=== PATIENT | male | born 1985 | race American Indian/Alaskan Native ===

== ENCOUNTER 2018-06-17 07:08 | Emergency (ER) | payer SELFPAY ==
[2018-06-17] MEDS ORDERED: TORADOL IM ONE (08:57)
--- NOTE | 2018-06-17 09:03 | Emergency Department Report ---
ED Back Pain/Injury HPI - General Chief Complaint: Back Pain/Injury Stated Complaint: BACK PAIN Time Seen by Provider: 06/17/18 08:52 Source: patient Limitations: No Limitations - History of Present Illness Initial Comments: Mr. Love is a healthy 32 yo male who presents with left lower back pain, mild achy stiff. He has hx of "bad feet". Mild pain at the bottom of both feets. No leg pain otherwise. No paresthesias. 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 MD Complaint: back pain -: Gradual, unknown (Sunday morning) Similar Symptoms Previously: No Place: work Radiation: none Severity: mild Quality: dull Consistency: constant Improves With: movement - Related Data Previous Rx's Medication Instructions Recorded Last Taken Type Cyclobenzaprine [Flexeril] 10 mg PO TID PRN #20 tablet 06/17/18 Unknown Rx Ibuprofen 400 mg PO QID 5 Days #20 tablet 06/17/18 Unknown Rx Allergies Allergy/AdvReac Type Severity Reaction Status Date / Time No Known Allergies Allergy Unverified 06/17/18 07:51 ED Review of Systems ROS: Stated complaint: BACK PAIN Other details as noted in HPI Constitutional: denies: fever, malaise Cardiovascular: denies: chest pain Gastrointestinal: denies: abdominal pain Musculoskeletal: back pain. denies: joint swelling, arthralgia Skin: denies: rash, lesions ED Past Medical Hx - Past Medical History Previous Medical History?: No - Surgical History Past Surgical History?: No - Social History Smoking Status: Current Some Day Smoker Substance Use Type: None - Medications Home Medications: Home Medications Medication Instructions Recorded Confirmed Last Taken Type Cyclobenzaprine [Flexeril] 10 mg PO TID PRN #20 tablet 06/17/18 Unknown Rx Ibuprofen 400 mg PO QID 5 Days #20 tablet 06/17/18 Unknown Rx ED Physical Exam - General Limitations: No Limitations General appearance: alert, in no apparent distress, other (patient appears well , appears comfortable) - Head Head exam: Present: atraumatic, normocephalic - Eye Eye exam: Present: normal appearance - ENT ENT exam: Present: mucous membranes moist - Neck Neck exam: Present: normal inspection - Respiratory Respiratory exam: Present: normal lung sounds bilaterally. Absent: respiratory distress, wheezes, rales, rhonchi - Cardiovascular Cardiovascular Exam: Present: regular rate, normal rhythm, normal heart sounds. Absent: systolic murmur, diastolic murmur, rubs, gallop - GI/Abdominal GI/Abdominal exam: Present: soft, normal bowel sounds. Absent: distended, tenderness, guarding, rebound - Rectal Rectal exam: Present: deferred - Extremities Exam Extremities exam: Present: normal inspection - Back Exam Back exam: Present: normal inspection, full ROM. Absent: tenderness, CVA tenderness (R), CVA tenderness (L), muscle spasm, paraspinal tenderness, vertebral tenderness - Neurological Exam Neurological exam: Present: alert, oriented X3 - Psychiatric Psychiatric exam: Present: normal affect, normal mood - Skin Skin exam: Present: warm, dry, intact, normal color. Absent: rash ED Course Vital Signs 06/17/18 07:51 Temperature 98.6 F Pulse Rate 69 Respiratory 16 Rate Blood Pressure 112/79 O2 Sat by Pulse 100 Oximetry ED Medical Decision Making - Medical Decision Making Tim is a pleasant 32-year-old male presents with left back strain and bilateral foot pain due to overuse injury at work. 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 I recommended anti-inflammatories and muscle relaxer. He was given IM Toradol in the ED. Prescribed ibuprofen and Flexeril. With history of "bad feet, suspect patient has plantar fasciitis". He was given written instructions. Critical care attestation.: If time is entered above; I have spent that time in minutes in the direct care of this critically ill patient, excluding procedure time. ED Disposition Clinical Impression: Low back strain, Bilateral foot pain Disposition: - TO HOME OR SELFCARE Is pt being admited?: No Does the pt Need Aspirin: No Condition: Stable Instructions: Low Back Strain (ED), Plantar Fasciitis (ED) Prescriptions: Cyclobenzaprine [Flexeril] 10 mg PO TID PRN #20 tablet PRN Reason: Muscle Spasm Ibuprofen 400 mg PO QID 5 Days #20 tablet Referrals: [facility] [Outside] - 3-5 Days
[2018-06-17 09:17] VITALS: BP 127/83
== END 2018-06-17 09:17 | disposition home or self-care (01) ==
LOC: EDBD → ED 07:08
DX: S39.012A Strain of muscle, fascia and tendon of lower back, initial encounter (principal); M79.672 Pain in left foot; M79.671 Pain in right foot; F17.200 Nicotine dependence, unspecified, uncomplicated; W24.0XXA Contact with lifting devices, not elsewhere classified, initial encounter; Y93.89 Activity, other specified; Y92.69 Other specified industrial and construction area as the place of occurrence of the external cause; Y99.8 Other external cause status
CPT/HCPCS: 96372; 99282; J1885

== ENCOUNTER 2018-10-20 21:40 | Emergency (ER) | payer BC ==
--- NOTE | 2018-10-20 21:52 | Emergency Department Report ---
Blank Doc - Documentation Documentation: This is a 33-year-old male that c/o of left arm redness and pain. stated burned himself while cooking a few weeks ago and pain with redness started yesterday. This initial assessment diagnostic orders/clinical plan/treatment(s) is/are subject to change based on patient's health status, clinical progression and re- assessment by fellow clinical providers in the ED. Further treatment and workup at subsequent clinical providers discretion. Patient/guardians urged not to e zaina from ED s their condition may be serious if not clinically assessed and managed. Initial orders include: 1-Patient sent to [facility] for further evaluation and treatment
[2018-10-20 21:54] VITALS: BP 144/74
--- NOTE | 2018-10-21 00:46 | Emergency Department Report ---
ED Rash HPI - HPI Chief Complaint: Skin Rash Stated Complaint: BURN RASH ON LEFT ARM Time Seen by Provider: 10/20/18 21:51 Duration: Today Location: Upper Extremities (forearm left) Rash Symptoms: Yes Itching, No Facial Swelling, No Tongue/Oral Swelling, No Breathing Difficulties, No Choking Sensation, No Wheezing/Dyspnea, No Peeling, No Blistering, No Fever, No Lightheaded, No Malaise, No Myalgias Severity: mild Other History: 33-year-old -[place] male reports to the emergency room for left forearm bumps around a burn that he inquired on 10/02/2018. Patient reports that the rash itches and has blisterlike pimples. Patient reports he was using triple antibiotic ointment on his burn but only did that for 1 day. ED Review of Systems ROS: Stated complaint: BURN RASH ON LEFT ARM Other details as noted in HPI Comment: All other systems reviewed and negative Skin: rash ED Past Medical Hx - Past Medical History Previous Medical History?: No - Surgical History Past Surgical History?: No - Social History Smoking Status: Never Smoker Substance Use Type: None - Medications Home Medications: Home Medications Medication Instructions Recorded Confirmed Last Taken Type Cyclobenzaprine [Flexeril] 10 mg PO TID PRN #20 tablet 06/17/18 Unknown Rx Ibuprofen 400 mg PO QID 5 Days #20 tablet 06/17/18 Unknown Rx Triamcinolone Acetonide 15 gm TP BID PRN #1 cream..g. 10/21/18 Unknown Rx Rash Exam - Exam General: Vital signs noted. No distress. Alert and acting appropriately. HEENT: No Periorbital Edema, No Conjuctival Injection, No Chemosis, No Perioral Edema, No Tongue Edema, No Uvular Edema, No Compromised Airway, No Drooling Lungs: Yes Good Air Exchange (Normal Breath Sounds), No Wheezes, No Ronchi, No Stridor, No Cough, No Labored Respirations, No Retractions, No Use of Accessory Muscles, No Other Abnormal Lung Sounds Heart: Yes Regular, No Murmur Skin: Yes Other (pimple-like lesions that have clear fluid nontender to palpate), No Urticarial Rash, No Morbilliform rash, No Excoriations, No Weeping, No Tenderness, No Erythema, No Edema, No Encrustations ED Course Vital Signs 10/20/18 21:52 Temperature 98 F Pulse Rate 80 Respiratory 16 Rate Blood Pressure 144/74 O2 Sat by Pulse 99 Oximetry ED Medical Decision Making - Medical Decision Making Patient has been evaluated by this provider fast track. Sample of fluid from blisterlike pimple sent to lab for culture We'll try triamcinolone ointment to rash to see if that improves. We'll also refer patient to dermatology if the rash does not improve he should follow up with them. Critical care attestation.: If time is entered above; I have spent that time in minutes in the direct care of this critically ill patient, excluding procedure time. ED Disposition Clinical Impression: Rash and nonspecific skin eruption Disposition: - TO HOME OR SELFCARE Is pt being admited?: No Does the pt Need Aspirin: No Condition: Stable Instructions: Acute Rash (ED) Additional Instructions: Please use cream on the rash if no improvement in 3 days please follow up with a business services vice president I have listed one below for your convenience. Prescriptions: Triamcinolone Acetonide 15 gm TP BID PRN #1 cream..g. PRN Reason: Rash Referrals: ESHA NICHOLE MD [Staff Physician] - 3-5 Days Forms: Work/School Release Form(ED)
== END 2018-10-21 00:56 | disposition home or self-care (01) ==
LOC: ED 21:40
DX: R21 Rash and other nonspecific skin eruption (principal); L29.9 Pruritus, unspecified
CPT/HCPCS: 87116; 99282